=== PATIENT | male | born 1965 | race American Indian/Alaskan Native ===

== ENCOUNTER 2021-09-14 14:37 | Emergency (ER) | payer MEDICARE ==
--- NOTE | 2021-09-14 15:26 | Event Note ---
ED Screening Note ED Screening Note: brought here by mother she states he has alz dementia is urinating and defecating on himself she has spoke w [facility] and they sent him here for med clearance she reports he is disoriented but he is a/o on exam rx risperidone donezerpil fluoxitine certriizine methylpred vitamins no hi no si This initial assessment/diagnostic orders/clinical plan/treatment(s) is/are subject to change based on patients health status, clinical progression and re- assessment by fellow clinical providers in the ED. Further treatment and workup at subsequent clinical providers discretion. Patient/guardian urged not to elope from the ED as their condition may be serious if not clinically assessed and managed. Initial orders include: med clearance
[2021-09-14] MEDS ORDERED: SODIUM CHLORIDE 0.9% 500 ML 500 ML IV ONE (15:44)
--- NOTE | 2021-09-14 15:50 | Emergency Department Report ---
ED General Adult HPI - General Chief complaint: Altered Mental Status Stated complaint: PYSCH EVAL Time Seen by Provider: 09/14/21 15:06 Source: patient Mode of arrival: Ambulatory Limitations: No Limitations - History of Present Illness Initial comments: Patient was brought in for dementia. The basically cannot provide care any longer. Patient tends to wander off. He is agitated intermittently. He will argue with her. He urinates all the time. He has dementia and she just cannot provide care any longer. She states that she does not have any help from family. She has had him seen by the regular doctor because of the urination and frequent urination and the fact that he will simply urinate in the car, in the bed, in the floor, and in the bathroom. She was told that his "bladder, kidneys, and prostate are normal." She states that she just cannot tolerate this and cannot take this anymore. She states that she is too stressed and she needs help. She needs him in a long-term care facility. She was told by [facility] to bring him here for medical clearance and that they might accept him. - Related Data Previous Rx's Medication Instructions Recorded Last Taken Type OLANzapine ZYDIS [ZyPREXA Zydis] 5 mg PO QHS tab.rapdis 12/28/15 Unknown Rx haloperidoL [Haldol] 2 mg PO TID #30 tab 09/14/21 Unknown Rx Allergies Allergy/AdvReac Type Severity Reaction Status Date / Time No Known Allergies Allergy Verified 09/14/21 17:05 ED Review of Systems ROS: Stated complaint: PYSCH EVAL Other details as noted in HPI Comment: Unobtainable due to pts medical conditions (Dementia. Review of systems was asked of the as below.) Constitutional: denies: fever Eyes: denies: eye discharge ENT: denies: epistaxis Respiratory: denies: cough Cardiovascular: denies: syncope Endocrine: denies: unexplained weight loss Gastrointestinal: denies: vomiting, diarrhea Genitourinary: as per HPI Musculoskeletal: denies: joint swelling Skin: denies: rash Neurological: as per HPI Hematological/Lymphatic: denies: easy bruising ED Past Medical Hx - Past Medical History Previous Medical History?: Yes Additional medical history: dementia, depression, alzheimers - Surgical History Past Surgical History?: No - Family History Family history: no significant - Social History Smoking Status: Current Every Day Smoker Substance Use Type: None - Medications Home Medications: Home Medications Medication Instructions Recorded Confirmed Last Taken Type OLANzapine ZYDIS [ZyPREXA Zydis] 5 mg PO QHS tab.rapdis 12/28/15 Unknown Rx haloperidoL [Haldol] 2 mg PO TID #30 tab 09/14/21 Unknown Rx ED Physical Exam - General Limitations: Altered Mental Status (Pleasantly confused), Other (Pulse ox noted and normal) General appearance: alert, in no apparent distress - Head Head exam: Present: atraumatic, normocephalic - Eye Eye exam: Present: normal appearance, PERRL, EOMI. Absent: scleral icterus - ENT ENT exam: Present: normal orophraynx, normal external ear exam - Neck Neck exam: Present: normal inspection. Absent: meningismus - Respiratory Respiratory exam: Present: normal lung sounds bilaterally. Absent: respiratory distress - Cardiovascular Cardiovascular Exam: Present: regular rate, normal rhythm - GI/Abdominal GI/Abdominal exam: Present: soft. Absent: distended, tenderness - Extremities Exam Extremities exam: Present: normal capillary refill - Back Exam Back exam: Absent: CVA tenderness (R), CVA tenderness (L) - Neurological Exam Neurological exam: Present: alert, altered, CN II-XII intact, reflexes normal - Psychiatric Psychiatric exam: Present: normal affect, normal mood - Skin Skin exam: Present: warm, dry ED Course Vital Signs 09/14/21 09/14/21 09/14/21 14:58 15:44 15:45 Temperature 98.6 F Pulse Rate 81 73 68 Respiratory 16 20 19 Rate Blood Pressure 101/74 Blood Pressure 117/71 [Left] O2 Sat by Pulse 97 97 Oximetry 09/14/21 09/14/21 09/14/21 16:00 16:16 16:30 Temperature Pulse Rate 71 88 65 Respiratory 11 L 18 18 Rate Blood Pressure 113/76 113/76 113/76 Blood Pressure [Left] O2 Sat by Pulse 99 100 100 Oximetry 09/14/21 09/14/21 09/14/21 16:46 17:00 17:16 Temperature Pulse Rate 64 61 66 Respiratory 17 12 13 Rate Blood Pressure 113/76 113/76 113/76 Blood Pressure [Left] O2 Sat by Pulse 99 100 99 Oximetry 09/14/21 09/14/21 09/14/21 17:24 17:30 18:25 Temperature 99.3 F Pulse Rate 65 80 90 Respiratory 17 Rate Blood Pressure 113/76 113/76 Blood Pressure [Left] O2 Sat by Pulse 99 Oximetry 09/14/21 19:30 Temperature 99 F Pulse Rate 62 Respiratory 15 Rate Blood Pressure Blood Pressure 114/81 [Left] O2 Sat by Pulse 100 Oximetry - Reevaluation(s) Reevaluation #1: 09/14/21 15:49 Labs were ordered. Psych consult and child protective services social worker consult were ordered. Old records noted. Reevaluation #2: 09/14/21 17:17 CBC and chemistries were noted. UA and psychiatric evaluation are pending. Reevaluation #3: 09/14/21 21:01 Patient has been cleared by psych. Case management has provided resources. Have had a long discussion with the mother. Patient was discharged. ED Medical Decision Making - Lab Data Result diagrams: 09/14/21 15:50 09/14/21 15:50 Rhythm strip: Normal sinus rhythm without ectopy per monitor observe 10 seconds. - Radiology Data Radiology results: report reviewed - Medical Decision Making Patient presents secondary to reports of altered mental status and psychiatric evaluation. Patient really does not have altered mental status. He is agitated. He reportedly has dementia as well as traumatic brain injury. The mother has gotten to the point that she cannot provide care for him and feels stressed out. She would like him placed in a long-term care facility. Patient does not have any medical indication for admission. He has been seen and evaluated by psychiatric services. They do not believe that he would benefit from general psych are would be appropriate. We have given resources to the mother. She is comfortable with outpatient follow-up and arranging long-term care. She will follow up tomorrow with one of the long-term care facilities to get him placed. There is no obvious infectious pathology. Critical Care Time: No Critical care attestation.: If time is entered above; I have spent that time in minutes in the direct care of this critically ill patient, excluding procedure time. ED Disposition Clinical Impression: Urinary frequency Dementia Qualifiers: Dementia type: unspecified type Dementia behavioral disturbance: with behavioral disturbance Qualified Code(s): F03.91 - Unspecified dementia with behavioral disturbance Disposition: 01 HOME / SELF CARE / HOMELESS Is pt being admited?: No Condition: Stable Instructions: Dementia Caregiver Guide Additional Instructions: OUTPATIENT MENTAL HEALTH RESOURCES [facility], [facility] Farhan Pulido MD: [address] [place] [address] [place] [address] [place] [facility]: [facility] [address] [place] [address] [place] [address] [phone] [facility]: [facility] Healthcare: [address] [facility] [address] [facility] [place] [address] [facility] [address] [place] [facility]: Kip Gomez MD: [address] [facility] [id number] [facility]: [address] [place], [place] [id number] [phone] [place] CRISIS AND ACCESS LINE: Prescriptions: haloperidoL [Haldol] 2 mg PO TID #30 tab Referrals: PRIMARY CARE, [Primary Care Provider] - 3-5 Days
--- NOTE | 2021-09-14 16:32 | XRay Report ---
CHEST 1 VIEW 09/14/2021 3:24 PM INDICATION / CLINICAL INFORMATION: Medical Clearance Psych. COMPARISON: None available. FINDINGS: SUPPORT DEVICES: None. HEART / MEDIASTINUM: No significant abnormality. LUNGS / PLEURA: There is probable mild bibasilar atelectasis versus scarring. The lungs are otherwise clear. No significant pleural effusion. No pneumothorax. ADDITIONAL FINDINGS: No significant additional findings. IMPRESSION: 1. No acute abnormality of the chest. Signer Name: Richard Alvarez MD Signed: 09/14/2021 4:27 PM Workstation Name: [employer]
[2021-09-14 16:36] LABS: Alanine Aminotransferase 18 units/L (7-56); Albumin 4.2 g/dL (3.9-5); BUN/Creatinine Ratio 11; Blood Urea Nitrogen 11 mg/dL (9-20); Calcium 9.1 mg/dL (8.4-10.2); Hemolysis Index 10
[2021-09-14 16:41] LABS: Basophils % (Auto) 1.1 % (0.0-1.8); Eosinophils % (Auto) 1.1 % (0.0-4.3); Hematocrit 41.7 % (35.5-45.6); Hemoglobin 13.9 gm/dl (11.8-15.2); Lymphocytes # (Auto) 1.4 K/mm3 (1.2-5.4); Lymphocytes % (Auto) 32.9 % (13.4-35.0); Mean Corpuscular HGB Conc 33 % (32-34); Mean Corpuscular Volume 81 fl (84-94); Monocytes # (Auto) 0.4 K/mm3 (0.0-0.8); Monocytes % (Auto) 10.1 % (0.0-7.3); Platelet Count 236 K/mm3 (140-440); Red Blood Count 5.12 M/mm3 (3.65-5.03); Red Cell Distribution Width 13.9 % (13.2-15.2)
[2021-09-14 20:23] VITALS: BP 114/81
[2021-09-14 20:34] LABS: WBC,Urine < 1.0 /HPF (0.0-6.0)
[2021-09-14 20:37] LABS: Bilirubin,Urine Negative (Negative); Blood,Urine Negative (Negative); Color,Urine Colorless (Yellow)
[2021-09-14 20:38] LABS: RBC,Urine < 1.0 /HPF (0.0-6.0); Urobilinogen,Urine < 2.0 mg/dL (<2.0)
[2021-09-14 20:43] LABS: Amphetamine Screen,Urine Negative; Benzodiazepines Screen,Urine Negative; Cannabinoid Screen,Urine Negative; Cocaine Screen,Urine Negative; Methadone Screen,Urine Negative; Opiate Screen,Urine Negative
--- NOTE | 2021-09-15 10:12 | Electrocardiograph Report ---
[facility] Test Date: 2021-09-14 Test Time: 17:45:23 Pat Name: RENNY SADLER Department: Room: Gender: M Medical Advisor: [id number] : 1965 Requested By: ETTA PANCHAL Order Number: [id number] Reading MD: Marko Garcia Measurements Intervals [place] Rate: 59 P: 52 HI: 126 QRS: 12 QRSD: 87 T: 42 QT: 402 QTc: 398 Interpretive Statements Sinus rhythm No previous ECG available for comparison Electronically Signed On 09-15-2021 10:12:37 EST by Marko Garcia
== END 2021-09-14 21:10 | disposition home or self-care (01) ==
LOC: ED 14:37
DX: R35.0 Frequency of micturition (principal); F17.200 Nicotine dependence, unspecified, uncomplicated; F32.9 Major depressive disorder, single episode, unspecified; G30.9 Alzheimer's disease, unspecified; F02.80 Dementia in other diseases classified elsewhere, unspecified severity, without behavioral disturbance, psychotic disturbance, mood disturbance, and anxiety; Z79.899 Other long term (current) drug therapy
CPT/HCPCS: 36415; 71045; 80053; 80307; 81001; 84443; 85025; 93005; 93010; 99284; J7040; 80320; G0480